=== PATIENT | male | born 1935 | race Two or more races ===

== ENCOUNTER 2019-12-15 21:59 | Inpatient (IN) | payer OTHER ==
[~2019-12-15] VITALS: Ht 165.1 cm; Wt 46.8 kg
[2019-12-15 23:36] LABS: Basophils # (auto) 0.1 10 ^3/uL (0-0.2); Basophils % (auto) 0.5 % (0.0-2.0); Eosinophils # (auto) 0.2 10 ^3/uL (0-0.8); Eosinophils % (auto) 1.8 % (0.0-7.0); Hematocrit 32.1 % (41.0-53.0); Hemoglobin 10.8 g/dL (13.5-17.5); Lymphocytes # (auto) 3.1 10 ^3/uL (0.4-5.4); Lymphocytes % (auto) 29.3 % (10.0-50.0); Mean Corpuscular Hemoglobin 31.6 pg (28.0-32.0); Mean Corpuscular Hgb Conc. 33.7 g/dL (32.0-36.0); Mean Corpuscular Volume 93.7 fL (80.0-100.0); Monocytes # (auto) 0.8 10 ^3/uL (0-1.3); Monocytes % (auto) 7.9 % (0.0-12.0); Neutrophils # (auto) 6.3 10 ^3/uL (1.6-8.6); Neutrophils % (auto) 60.5 % (37.0-80.0); Nucleated Red Blood Cells % 0.1 %; Platelet Count (auto) 232 10^3/uL (140-450); Red Blood Cells 3.42 10^6/uL (4.5-5.90); Red Cell Distribution Width 13.7 % (11.8-14.3); White Blood Cell 10.4 10^3/uL (4.4-10.8)
[2019-12-15 23:49] LABS: INR 1.07 (0.9-1.15); Partial Thromboplastin Time 24.5 sec (23.64-32.05)
[2019-12-15 23:51] LABS: Albumin 3.3 g/dL (3.4-5.0); Calcium 8.5 mg/dL (8.5-10.1); Potassium 5.5 mmol/L (3.5-5.1)
[2019-12-15 23:53] LABS: BUN/Creatinine Ratio 43.3
[2019-12-15 23:58] LABS: Bilirubin, Total 0.4 mg/dL (0.2-1.0)
[2019-12-16] MEDS ORDERED: cefTRIAXone 1GM/50ML D5W 50 ML IV ONE (00:15)
[2019-12-16] MEDS ORDERED: ENOXAPARIN SOD 60 MG/0.6 ML SYRINGE SC ONE (00:15)
[2019-12-16] MEDS ORDERED: AZITHROMYCIN 500MG/ 250ML 250 ML IV ONE (00:15)
[2019-12-16] MEDS ORDERED: ONDANSETRON HCL 4 MG/2 ML VIAL IV PRN (07:15)
[2019-12-16] MEDS ORDERED: ACETAMINOPHEN 325 MG TAB PO PRN (07:15)
[2019-12-16] MEDS ORDERED: MORPHINE SULF INJ 2 MG/ML SYRINGE 1ML IV PRN (07:15)
[2019-12-16] MEDS ORDERED: NITROGLYCERIN 0.4 MG SL TAB SL PRN (07:15)
[2019-12-16] MEDS ORDERED: FUROSEMIDE 20 MG/2 ML VIAL IV ONE (07:15)
[2019-12-16] MEDS: LISINOPRIL 10 MG TAB PO SCH (11:43)
[2019-12-16] MEDS: FUROSEMIDE 40 MG TAB PO SCH (11:43)
[2019-12-16] MEDS: ENOXAPARIN SOD 40 MG/0.4 ML SYRINGE SC SCH (11:43)
[2019-12-16] MEDS: FAMOTIDINE 20 MG TAB PO SCH ×3 (11:43→22:30)
[2019-12-16 12:08] LABS: BUN/Creatinine Ratio 45.2; Calcium 8.6 mg/dL (8.5-10.1); Potassium 4.3 mmol/L (3.5-5.1)
[2019-12-16] MEDS ORDERED: FLUO-126 PO (13:02)
[2019-12-16] MEDS ORDERED: FERR27TA2 PO (13:02)
[2019-12-16] MEDS ORDERED: APOA10CA PO (13:02)
[2019-12-16] MEDS ORDERED: MULTCAP7 OR (13:02)
[2019-12-16] MEDS ORDERED: HYDR50TA15 PO (13:02)
[2019-12-16] MEDS ORDERED: CARV6.25 PO (13:02)
[2019-12-16] MEDS ORDERED: LISI-646 PO (13:02)
[2019-12-16] MEDS ORDERED: MEGE40TA15 PO (13:02)
[2019-12-16] MEDS ORDERED: ASPI-404 PO (13:02)
[2019-12-16] MEDS ORDERED: SPIR25TA8 PO (13:02)
[2019-12-16] MEDS ORDERED: TAMS0.4C36 PO (13:02)
[2019-12-16] MEDS ORDERED: ATOR20TA50 PO (13:02)
[2019-12-16] MEDS ORDERED: MULTTAB61 PO (13:02)
[2019-12-16] MEDS ORDERED: FINA5TAB4 PO (13:02)
[2019-12-16 15:00] VITALS: BP 91/36
[2019-12-16] MEDS ORDERED: D5W/SOD CHL 0.45% 1,000 ML IV SCH (15:15)
[2019-12-16] MEDS ORDERED: IOHEXOL 350 MG/ML 100ML IJ ONE (15:27)
[2019-12-16 15:38] VITALS: BP 143/87
[2019-12-16 16:17] LABS: CRP High Sensitivity < 0.02 mg/dL (< 0.3); Cholesterol 123 mg/dL (< 200)
[2019-12-16] MEDS: D5W/SOD CHL 0.45% 1,000 ML IV SCH (16:17)
[2019-12-16 16:20] LABS: HDL Cholesterol 42 mg/dL (40-59); LDL Cholesterol 76 mg/dL (< 100); Triglycerides 57 mg/dL (< 150)
[2019-12-16 17:00] VITALS: BP 135/48
[2019-12-16] MEDS: TAMSULOSIN HYDROCHLORIDE 0.4 MG CAP PO SCH (18:09)
[2019-12-16 22:00] VITALS: BP 144/78
[2019-12-16] MEDS: ATORVASTATIN 20 MG TAB PO SCH ×2 (22:00→22:30)
[2019-12-17] MEDS: D5W/SOD CHL 0.45% 1,000 ML IV SCH (05:13)
[2019-12-17 06:00] VITALS: BP 131/53
[2019-12-17 06:58] LABS: Basophils # (auto) 0.1 10 ^3/uL (0-0.2); Basophils % (auto) 0.6 % (0.0-2.0); Eosinophils # (auto) 0.2 10 ^3/uL (0-0.8); Eosinophils % (auto) 2.4 % (0.0-7.0); Hematocrit 34.7 % (41.0-53.0); Hemoglobin 11.9 g/dL (13.5-17.5); Lymphocytes # (auto) 2.3 10 ^3/uL (0.4-5.4); Lymphocytes % (auto) 22.4 % (10.0-50.0); Mean Corpuscular Hemoglobin 31.7 pg (28.0-32.0); Mean Corpuscular Hgb Conc. 34.3 g/dL (32.0-36.0); Mean Corpuscular Volume 92.3 fL (80.0-100.0); Monocytes # (auto) 0.9 10 ^3/uL (0-1.3); Monocytes % (auto) 8.4 % (0.0-12.0); Neutrophils # (auto) 6.7 10 ^3/uL (1.6-8.6); Neutrophils % (auto) 66.2 % (37.0-80.0); Nucleated Red Blood Cells % 0.1 %; Platelet Count (auto) 237 10^3/uL (140-450); Red Blood Cells 3.76 10^6/uL (4.5-5.90); Red Cell Distribution Width 13.5 % (11.8-14.3); White Blood Cell 10.1 10^3/uL (4.4-10.8)
[2019-12-17 07:25] LABS: Albumin 3.1 g/dL (3.4-5.0); Calcium 8.2 mg/dL (8.5-10.1); Potassium 3.8 mmol/L (3.5-5.1)
[2019-12-17 07:30] LABS: BUN/Creatinine Ratio 43.1; Bilirubin, Total 0.5 mg/dL (0.2-1.0); Total Protein 5.7 g/dL (6.4-8.2)
[2019-12-17] MEDS ORDERED: LIDOCAINE 2%HCL (LOCAL ANESTH.) INJ 20ML MDV ONE (08:36)
[2019-12-17] MEDS ORDERED: fentaNYL CITRATE 100 MCG/2 ML VL ONE (08:43)
[2019-12-17] MEDS ORDERED: VANCOMYCIN HCL 1000 MG VL ONE ×2 (08:43→10:52)
[2019-12-17] MEDS ORDERED: MIDAZOLAM HCL 1MG/1ML-2 ML VIAL ONE (08:43)
[2019-12-17] MEDS ORDERED: VANCOMYCIN 1GM/250ML 250 ML IV ONE (08:44)
[2019-12-17 09:48] VITALS: BP 148/72
[2019-12-17] MEDS: FUROSEMIDE 40 MG TAB PO SCH (10:00)
[2019-12-17] MEDS: ENOXAPARIN SOD 40 MG/0.4 ML SYRINGE SC SCH (10:00)
[2019-12-17] MEDS: LISINOPRIL 10 MG TAB PO SCH (10:00)
[2019-12-17] MEDS: FAMOTIDINE 20 MG TAB PO SCH ×2 (10:00→21:41)
[2019-12-17] MEDS: ceFAZolin 1GM/50ML 50 ML IV SCH ×2 (13:27→21:41)
[2019-12-17 14:43] VITALS: BP 138/65
[2019-12-17 16:47] VITALS: BP 148/65
[2019-12-17] MEDS: TAMSULOSIN HYDROCHLORIDE 0.4 MG CAP PO SCH (17:47)
[2019-12-17 20:00] VITALS: BP 108/62
[2019-12-17] MEDS: ATORVASTATIN 20 MG TAB PO SCH (21:41)
[2019-12-17 22:00] VITALS: BP 108/62
[2019-12-18 05:00] VITALS: BP 119/47
[2019-12-18] MEDS: ceFAZolin 1GM/50ML 50 ML IV SCH ×3 (05:43→22:18)
[2019-12-18 09:00] VITALS: BP_SYST 139; BP_SYST 154; BP_DIAS 77; BP_DIAS 78
[2019-12-18] MEDS: ENOXAPARIN SOD 40 MG/0.4 ML SYRINGE SC SCH (10:10)
[2019-12-18] MEDS: FAMOTIDINE 20 MG TAB PO SCH ×2 (10:10→22:19)
[2019-12-18] MEDS: LISINOPRIL 10 MG TAB PO SCH (10:10)
[2019-12-18] MEDS: FUROSEMIDE 40 MG TAB PO SCH (10:11)
[2019-12-18] MEDS: SODIUM CHLORIDE 0.9% 1,000 ML IV SCH ×2 (11:15→22:18)
[2019-12-18] MEDS: DOXYCYCLINE 100 MG TAB/CAP PO SCH ×2 (12:09→22:19)
[2019-12-18 13:00] VITALS: BP 112/54
[2019-12-18] MEDS: LORazepam 2MG/ML-1ML VIAL IV PRN (16:19)
[2019-12-18 17:00] VITALS: BP 154/78
[2019-12-18] MEDS ORDERED: diphenhdrAMINE HCL 50 MG/1 ML VL IV ONE (17:30)
[2019-12-18] MEDS ORDERED: HALOPERIDOL LACTATE 5 MG/ML INJ VIAL IM ONE (17:30)
[2019-12-18] MEDS: TAMSULOSIN HYDROCHLORIDE 0.4 MG CAP PO SCH (17:53)
[2019-12-18 18:15] VITALS: BP 148/90
[2019-12-18] MEDS: ATORVASTATIN 20 MG TAB PO SCH (22:19)
[2019-12-18] MEDS: TEMAZEPAM 15 MG CAP PO PRN (22:30)
[2019-12-19] MEDS: SODIUM CHLORIDE 0.9% 1,000 ML IV SCH ×3 (03:15→16:26)
[2019-12-19] MEDS: ceFAZolin 1GM/50ML 50 ML IV SCH (06:19)
[2019-12-19 09:00] VITALS: BP 135/85
[2019-12-19] MEDS ORDERED: HALOPERIDOL LACTATE 5 MG/ML INJ VIAL IM PRN (10:00)
[2019-12-19] MEDS: ENOXAPARIN SOD 40 MG/0.4 ML SYRINGE SC SCH ×2 (10:00→10:44)
[2019-12-19] MEDS: FAMOTIDINE 20 MG TAB PO SCH ×2 (10:44→21:19)
[2019-12-19] MEDS: DOXYCYCLINE 100 MG TAB/CAP PO SCH ×2 (10:44→21:19)
[2019-12-19] MEDS: LISINOPRIL 10 MG TAB PO SCH (10:45)
[2019-12-19] MEDS: FUROSEMIDE 40 MG TAB PO SCH (10:45)
[2019-12-19 13:00] VITALS: BP 131/66
[2019-12-19 17:46] VITALS: BP 134/71
[2019-12-19] MEDS: TAMSULOSIN HYDROCHLORIDE 0.4 MG CAP PO SCH (18:23)
[2019-12-19] MEDS: ATORVASTATIN 20 MG TAB PO SCH (21:19)
[2019-12-19 21:38] LABS: Folate (Folic Acid) > 24.00 ng/mL (5.38-24)
[2019-12-19 22:00] VITALS: BP 130/57
[2019-12-19] MEDS: TEMAZEPAM 15 MG CAP PO PRN (22:14)
[2019-12-20 01:46] LABS: Urine Bacteria FEW /hpf (None Seen); Urine Blood 2+ /uL (Negative); Urine Hyaline Cast MANY /lpf (0 - 2); Urine Mucus FEW (None Seen); Urine Specific Gravity 1.007 (1.001-1.035); Urine WBC 2 /hpf (0 - 3)
[2019-12-20] MEDS: LORazepam 2MG/ML-1ML VIAL IV PRN (02:15)
[2019-12-20] MEDS: SODIUM CHLORIDE 0.9% 1,000 ML IV SCH ×3 (02:18→19:15)
[2019-12-20 05:00] VITALS: BP 104/80
[2019-12-20 08:00] VITALS: BP 135/85
[2019-12-20] MEDS ORDERED: HALOPERIDOL LACTATE 5 MG/ML INJ VIAL IM PRN (09:00)
[2019-12-20] MEDS: FAMOTIDINE 20 MG TAB PO SCH ×3 (09:52→22:06)
[2019-12-20] MEDS: DOXYCYCLINE 100 MG TAB/CAP PO SCH ×3 (09:52→22:07)
[2019-12-20] MEDS: LISINOPRIL 10 MG TAB PO SCH (09:53)
[2019-12-20] MEDS: ENOXAPARIN SOD 40 MG/0.4 ML SYRINGE SC SCH (09:53)
[2019-12-20] MEDS: FUROSEMIDE 40 MG TAB PO SCH (09:53)
[2019-12-20] MEDS: TAMSULOSIN HYDROCHLORIDE 0.4 MG CAP PO SCH (18:00)
[2019-12-20 20:00] VITALS: BP 144/59
[2019-12-20 22:00] VITALS: BP 144/59
[2019-12-20] MEDS: ATORVASTATIN 20 MG TAB PO SCH ×2 (22:00→22:06)
[2019-12-21] MEDS: SODIUM CHLORIDE 0.9% 1,000 ML IV SCH ×3 (03:15→19:15)
[2019-12-21 05:00] VITALS: BP 110/53
[2019-12-21 08:29] VITALS: BP 116/69
[2019-12-21] MEDS: FAMOTIDINE 20 MG TAB PO SCH ×2 (13:03→22:30)
[2019-12-21] MEDS: DOXYCYCLINE 100 MG TAB/CAP PO SCH ×3 (13:05→22:31)
[2019-12-21] MEDS: LISINOPRIL 10 MG TAB PO SCH (13:05)
[2019-12-21] MEDS: FUROSEMIDE 40 MG TAB PO SCH (13:06)
[2019-12-21] MEDS: ENOXAPARIN SOD 40 MG/0.4 ML SYRINGE SC SCH (13:11)
[2019-12-21 13:30] VITALS: BP 112/66
[2019-12-21 16:20] VITALS: BP 122/63
[2019-12-21] MEDS: TAMSULOSIN HYDROCHLORIDE 0.4 MG CAP PO SCH (18:22)
[2019-12-21 20:09] VITALS: BP 126/59
[2019-12-21] MEDS: ATORVASTATIN 20 MG TAB PO SCH (22:30)
[2019-12-22] MEDS: SODIUM CHLORIDE 0.9% 1,000 ML IV SCH ×3 (03:15→19:15)
[2019-12-22 04:32] VITALS: BP 135/62
[2019-12-22 09:00] VITALS: BP 153/67
[2019-12-22] MEDS: FAMOTIDINE 20 MG TAB PO SCH ×2 (10:44→21:39)
[2019-12-22] MEDS: FUROSEMIDE 40 MG TAB PO SCH (10:45)
[2019-12-22] MEDS: DOXYCYCLINE 100 MG TAB/CAP PO SCH ×2 (10:45→21:39)
[2019-12-22] MEDS: LISINOPRIL 10 MG TAB PO SCH (10:45)
[2019-12-22] MEDS: ENOXAPARIN SOD 40 MG/0.4 ML SYRINGE SC SCH (10:47)
[2019-12-22 13:00] VITALS: BP 146/66
[2019-12-22 17:00] VITALS: BP 147/63
[2019-12-22] MEDS: TAMSULOSIN HYDROCHLORIDE 0.4 MG CAP PO SCH (17:59)
[2019-12-22 21:34] VITALS: BP 148/73
[2019-12-22] MEDS: ATORVASTATIN 20 MG TAB PO SCH (21:39)
[2019-12-22] MEDS: TEMAZEPAM 15 MG CAP PO PRN (21:40)
[2019-12-23] MEDS: LORazepam 2MG/ML-1ML VIAL IV PRN (01:34)
[2019-12-23] MEDS: SODIUM CHLORIDE 0.9% 1,000 ML IV SCH ×3 (02:46→22:47)
[2019-12-23 04:42] VITALS: BP 141/65
[2019-12-23 09:00] VITALS: BP 154/62
[2019-12-23] MEDS: ENOXAPARIN SOD 40 MG/0.4 ML SYRINGE SC SCH (10:04)
[2019-12-23] MEDS: DOXYCYCLINE 100 MG TAB/CAP PO SCH ×2 (10:04→22:00)
[2019-12-23] MEDS: FAMOTIDINE 20 MG TAB PO SCH ×2 (10:04→22:00)
[2019-12-23] MEDS: FUROSEMIDE 40 MG TAB PO SCH (10:04)
[2019-12-23] MEDS: LISINOPRIL 10 MG TAB PO SCH (10:04)
[2019-12-23 13:00] VITALS: BP 118/49
[2019-12-23 17:00] VITALS: BP 163/85
[2019-12-23] MEDS: TAMSULOSIN HYDROCHLORIDE 0.4 MG CAP PO SCH (18:00)
[2019-12-23] MEDS: ATORVASTATIN 20 MG TAB PO SCH (22:00)
[2019-12-24 02:48] VITALS: BP 154/76
[2019-12-24 05:39] VITALS: BP 148/73
[2019-12-24] MEDS: FUROSEMIDE 40 MG TAB PO SCH (10:03)
[2019-12-24] MEDS: DOXYCYCLINE 100 MG TAB/CAP PO SCH (10:04)
[2019-12-24] MEDS: FAMOTIDINE 20 MG TAB PO SCH (10:04)
[2019-12-24] MEDS: LISINOPRIL 10 MG TAB PO SCH (10:05)
[2019-12-24] MEDS: ENOXAPARIN SOD 40 MG/0.4 ML SYRINGE SC SCH (10:05)
[2019-12-24] MEDS: SODIUM CHLORIDE 0.9% 1,000 ML IV SCH (11:15)
== END 2019-12-24 16:00 | disposition home health service (06) | DRG 242 ==
LOC: ER 22:02 → TELE 22:03 → TELE-EAST 12-16 09:29 → TELE-E-ADS 12-16 10:56 → TELE-EAST 12-16 14:44 → TELE-WESTW 12-23 11:23
PROVIDERS: ADMIT Nurse Practitioner; ATTEND Family Medicine
PROC: 0JH606Z Insertion of Pacemaker, Dual Chamber into Chest Subcutaneous Tissue and Fascia, Open Approach (ICD-10-PCS; principal; 2019-12-17)
PROC: 02H63JZ Insertion of Pacemaker Lead into Right Atrium, Percutaneous Approach (ICD-10-PCS; 2019-12-17)
PROC: B5171ZA Fluoroscopy of Left Subclavian Vein using Low Osmolar Contrast, Guidance (ICD-10-PCS; 2019-12-17)
PROC: 02HK3JZ Insertion of Pacemaker Lead into Right Ventricle, Percutaneous Approach (ICD-10-PCS; 2019-12-17)
DX: I21.4 Non-ST elevation (NSTEMI) myocardial infarction (principal); G93.41 Metabolic encephalopathy; I50.33 Acute on chronic diastolic (congestive) heart failure; E43 Unspecified severe protein-calorie malnutrition; I48.92 Unspecified atrial flutter; I25.10 Atherosclerotic heart disease of native coronary artery without angina pectoris; I11.0 Hypertensive heart disease with heart failure; I49.5 Sick sinus syndrome; I48.91 Unspecified atrial fibrillation; E87.5 Hyperkalemia; N40.1 Benign prostatic hyperplasia with lower urinary tract symptoms; R33.8 Other retention of urine; J43.9 Emphysema, unspecified; E78.00 Pure hypercholesterolemia, unspecified; I45.9 Conduction disorder, unspecified; Z03.818 Encounter for observation for suspected exposure to other biological agents ruled out; Z74.01 Bed confinement status; Z90.49 Acquired absence of other specified parts of digestive tract; Z68.22 Body mass index [BMI] 22.0-22.9, adult
CPT/HCPCS: 36415; 70450; 71045; 71275; 80048; 80053; 80061; 81001; 82607; 82728; 82746; 82962; 83605; 83880; 84443; 84484; 85025; 85379; 85610; 85730; 86141; 87040; 87070; 87804; 87880; 92610; 93005; 93306; 93970; 95819; 96365; 96366; 96367; 96372; 96375; 97116; 97163; 97530; 99152; 99153; C1785; G0378; J0690; J0696; J2250